=== PATIENT | male | born 1945 | race Two or more races ===

== ENCOUNTER 2016-11-12 16:50 | Inpatient (IN) | payer MEDICARE, BC ==
[~2016-11-12] VITALS: Ht 180.3 cm; Wt 77.1 kg
[2016-11-12] MEDS ORDERED: FINA5TAB11 PO (17:24)
[2016-11-12] MEDS ORDERED: ATOR20TA PO (17:24)
[2016-11-12] MEDS ORDERED: INSU100C SQ (17:24)
[2016-11-12] MEDS ORDERED: METO-306 PO (17:24)
[2016-11-12] MEDS ORDERED: TAMS0.4C34 PO (17:24)
[2016-11-12] MEDS ORDERED: MAG-55 PO (17:24)
[2016-11-12] MEDS ORDERED: BISA10SU8 RC (17:24)
[2016-11-12] MEDS ORDERED: DOCU-170 PO (17:24)
[2016-11-12] MEDS ORDERED: ACET325T53 PO (17:24)
[2016-11-12] MEDS ORDERED: TRAZ-147 PO (17:24)
[2016-11-12] MEDS ORDERED: SENN8.6T6 PO (17:24)
[2016-11-12] MEDS ORDERED: ZYPREXA IM (17:24)
[2016-11-12] MEDS ORDERED: SERT50TA12 PO (17:24)
[2016-11-12] MEDS ORDERED: DONE10TA44 PO (17:24)
[2016-11-12] MEDS ORDERED: POLY250017 PO (17:24)
[2016-11-12] MEDS ORDERED: MIRT15TA7 PO (17:24)
[2016-11-12] MEDS ORDERED: QUET150T PO (17:24)
[2016-11-12] MEDS ORDERED: ENOX40DI9 SQ (17:24)
[2016-11-12] MEDS ORDERED: INSU100V7 SQ (17:24)
[2016-11-12] MEDS ORDERED: OXCA300T PO (17:24)
[2016-11-12 17:27] LABS: CARBON DIOXIDE 27 mmol/L (21-32); CHLORIDE 107 mmol/L (98-107); CREATININE 1.3 mg/dL (0.6-1.3); GLUCOSE 107 mg/dL (74-106); POTASSIUM 3.8 mmol/L (3.5-5.1); UREA NITROGEN, BLOOD 22 mg/dL (7-18)
[2016-11-12 17:32] LABS: ALANINE AMINOTRANSFERASE 23 U/L (16-63); ALKALINE PHOSPHATASE 66 U/L (50-136); ASPARTATE AMINOTRANSFERASE 37 U/L (15-37); BILIRUBIN,DIRECT 0.1 mg/dL (0.0-0.2); BILIRUBIN,TOTAL 0.5 mg/dL (0.2-1.0); TOTAL PROTEIN, SERUM 7.4 g/dL (6.4-8.2)
[2016-11-12 17:39] LABS: BASOPHILS % (AUTO) 0.4 % (0.0-2.0); EOSINOPHILS # (AUTO) 0.2 K/uL (0.0-0.7); EOSINOPHILS % (AUTO) 2.3 % (0.0-7.0); HEMATOCRIT 45.5 % (40-50); HEMOGLOBIN 15.4 G/DL (14.0-18.0); LYMPHOCYTES # (AUTO) 2.3 K/UL (0.8-4.8); LYMPHOCYTES % (AUTO) 29.7 % (20.5-51.5); MEAN CORPUSCULAR HGB CONC 34 g/dL (32.0-37.0); MEAN CORPUSCULAR VOLUME 88.9 FL (82.0-92.0); MONOCYTES % (AUTO) 13.1 % (0.0-11.0); NEUTROPHILS # (AUTO) 4.3 K/UL (1.8-8.9); NEUTROPHILS % (AUTO) 54.5 % (38.5-71.5); PLATELET COUNT (AUTO) 203 K/UL (150-450); RED BLOOD CELL COUNT(AUTO) 5.12 MIL/UL (4.7-6.1); WHITE BLOOD COUNT (AUTO) 7.8 K/UL (4.0-11.2)
[2016-11-12 17:40] LABS: ETHANOL < 3 MG/DL (0-0)
[2016-11-12 17:41] LABS: ACETAMINOPHEN < 2.0 ug/mL (10-30)
[2016-11-12 18:09] LABS: *BLOOD, URINE NEGATIVE (NEGATIVE); *CLARITY,URINE SLIGHTLY CLOUDY (CLEAR); *COLOR,URINE YELLOW (YELLOW); *KETONES,URINE 2+ (NEGATIVE); *UROBILINOGEN,URINE 0.2 E.U./dl (NORMAL); LEUKOCYTE ESTERASE ,URINE NEGATIVE (NEGATIVE); NITRITE, URINE NEGATIVE (NEGATIVE); UGLUCOSE NEGATIVE (NEGATIVE)
[2016-11-12 18:10] LABS: *PROTEIN,URINE 3+ (NEGATIVE)
[2016-11-12 18:11] LABS: *BILIRUBIN,URIN 1+ (NEGATIVE)
[2016-11-12 18:15] LABS: *AMPHETAMINE, URINE NEGATIVE (NEGATIVE); *BARBITURATE, URINE NEGATIVE (NEGATIVE); *CANNABINOID, URINE POSITIVE (NEGATIVE); *COCCAINE, URINE NEGATIVE (NEGATIVE); *OPIATE, URINE NEGATIVE (NEGATIVE); *PHENCYCLIDINE SCREEN,URINE NEGATIVE (NEGATIVE)
[2016-11-12 18:20] LABS: BACTERIA,URINE NONE SEEN /HPF (NONE SEEN); RBC,URINE 0-3 /HPF (0-3); SQUAMOUS EPITHELIAL CELL,UR NONE SEEN /HPF (NONE SEEN); WBC,URINE 0-3 /HPF (0-3)
--- NOTE | 2016-11-12 18:32 | NUR ---
PT MEDICALLY CLEARED, WIIL TRANSFER TO 2ND FLOOR MHU OVERFLOW IN PM SHIFT PER [facility] BANK CREDIT CARD COLLECTION CLERK.
--- NOTE | 2016-11-12 19:21 | NUR ---
Received report, assumed care of pt at this time. Sitter at bedside. Admission pending.
--- NOTE | 2016-11-12 19:37 | NUR ---
Report given to DREW Thompson. Preparing to transfer pt to the floor.
--- NOTE | 2016-11-12 20:00 | NUR ---
Received patient from ER [facility] overflow via [facility]. Patient is alert, confused, responds with disorganized thoughts. Admission procedures, plan of care initiated, belonging list done and accounted for. Sitter at bedside. Will continue plan of care and monitor.
[2016-11-12] MEDS ORDERED: ACETAMINOPHEN 325 MG TABLET PO PRN (20:15)
[2016-11-12] MEDS ORDERED: MAG HYDROX/AL HYDROX/SIMETH 30 ML LIQUID UDC PO PRN (20:15)
[2016-11-12] MEDS ORDERED: MAGNESIUM HYDROXIDE 30 ML LIQUID UDC PO PRN (20:15)
[2016-11-12] MEDS ORDERED: LORAZEPAM 1 MG TABLET PO PRN ×2 (20:15→20:30)
[2016-11-12] MEDS: LORAZEPAM 0.5 MG TABLET PO PRN (22:03)
[2016-11-12] MEDS: TEMAZEPAM 7.5 MG CAPSULE PO PRN (22:04)
--- NOTE | 2016-11-13 01:00 | NUR ---
Patient is agitated, called Dr. Kovacs for orders. Orders noted and carried out. Will reassess patient.
[2016-11-13] MEDS ORDERED: OLANZAPINE 10 MG VIAL IM ONE (01:15)
--- NOTE | 2016-11-13 02:30 | NUR ---
Patient is calm but awake. Sitter at bedside.
--- NOTE | 2016-11-13 06:00 | NUR ---
Patient did not sleep most of the night. Frequently tries to get out of bed. Sitter at bedside. Will continue to monitor.
--- NOTE | 2016-11-13 07:30 | NUR ---
Spoke with patient's son Faustino to inform about patient's 5150 hold. Per son, the reason for his dad's agitation is due to the psych meds he is on. Patient's son is upset that the reason his dad went to [facility] is for abdominal pain and chest pain but his dad ended up for "something else". Endorsed information to day shift RN.
[2016-11-13 08:00] VITALS: BP 136/79
[2016-11-13] MEDS: LORAZEPAM 0.5 MG TABLET PO PRN (08:55)
[2016-11-13 12:00] VITALS: BP 132/87
[2016-11-13] MEDS ORDERED: SERT50TA PO (13:20)
[2016-11-13] MEDS ORDERED: OXCA150T5 PO ×2 (13:20)
[2016-11-13] MEDS ORDERED: TRAZ-147 PO (13:20)
[2016-11-13] MEDS ORDERED: METH25VI11 IJ (13:20)
[2016-11-13] MEDS ORDERED: LORA0.5T PO (13:20)
[2016-11-13] MEDS ORDERED: DONE10TA44 PO (13:20)
[2016-11-13] MEDS ORDERED: INFL100V IV (13:20)
[2016-11-13] MEDS: MUPIROCIN 2% OINT 22 GM TUBE NS SCH ×2 (14:24→20:37)
[2016-11-13 16:00] VITALS: BP 140/83
[2016-11-13] MEDS ORDERED: BISACODYL 10 MG SUPP.RECT RC PRN (16:30)
[2016-11-13] MEDS ORDERED: SENNOSIDES 1 TABLET PO PRN (16:30)
[2016-11-13] MEDS ORDERED: DOCUSATE SODIUM 100 MG CAPSULE PO PRN (16:30)
[2016-11-13] MEDS ORDERED: POLYETHYLENE GLYCOL 17 GM PO PRN (16:30)
[2016-11-13] MEDS ORDERED: DEXTROSE 50% 50 ML DISP.SYRIN IV PRN (16:30)
[2016-11-13] MEDS: BLOOD SUGAR DIAGNOSTIC 1 EACH STRIP VI SCH ×2 (16:56→20:49)
[2016-11-13] MEDS ORDERED: INSULIN GLARGINE,HUM 300 UNITS/3 ML CARTRIDGE SQ SCH (17:00)
[2016-11-13] MEDS ORDERED: INSU3INS6 SUBCUT (17:12)
--- NOTE | 2016-11-13 18:11 | NUR ---
"OK TO INCREASE ATIVAN TO 1MG Q6H" PER DR. DAVILA
[2016-11-13] MEDS: QUETIAPINE FUMARATE 25 MG TABLET PO SCH (18:26)
[2016-11-13] MEDS: DIVALPROEX SPRINKLE 125 MG CAP.SPRINK PO SCH ×2 (18:26→20:38)
[2016-11-13] MEDS: INSULIN REGULAR, HUMAN 300 UNIT/3 ML VIAL SQ PRN (18:28)
[2016-11-13] MEDS: QUETIAPINE FUMARATE 100 MG TABLET PO SCH (20:38)
[2016-11-13] MEDS: ATORVASTATIN 20 MG TABLET PO SCH (20:38)
[2016-11-13] MEDS: TAMSULOSIN HCL 0.4 MG CAP.SR.24H PO SCH (20:38)
[2016-11-13] MEDS: SERTRALINE HCL 50 MG TABLET PO SCH (20:39)
[2016-11-13] MEDS: INSULIN DETEMIR 300 UNIT/3 ML CARTRIDGE SQ SCH (20:49)
[2016-11-13] MEDS ORDERED: LORAZEPAM 0.5 MG TABLET PO PRN (22:30)
--- NOTE | 2016-11-14 05:41 | NUR ---
Patient slept intermittently, restless, confused, responds to questions inappropriately/incongruent, in no acute distress. Accuchecks as ordered, no hypo/hyperglycemia episodes throughout the shift. 1:1 sitter at bedside for safety. Will continue plan of care and monitor.
[2016-11-14] MEDS: BLOOD SUGAR DIAGNOSTIC 1 EACH STRIP VI SCH ×4 (06:51→20:56)
[2016-11-14 06:52] VITALS: BP 145/69
[2016-11-14 08:00] VITALS: BP 131/81
[2016-11-14] MEDS: INSULIN REGULAR, HUMAN 300 UNIT/3 ML VIAL SQ PRN ×3 (08:05→17:53)
[2016-11-14] MEDS: FINASTERIDE 5 MG TABLET PO SCH (08:05)
[2016-11-14] MEDS: MUPIROCIN 2% OINT 22 GM TUBE NS SCH ×2 (08:05→20:13)
[2016-11-14] MEDS: DIVALPROEX SPRINKLE 125 MG CAP.SPRINK PO SCH ×3 (08:06→20:14)
[2016-11-14] MEDS: QUETIAPINE FUMARATE 25 MG TABLET PO SCH ×2 (08:06→17:44)
[2016-11-14] MEDS: METOPROLOL SUCCINATE XL 50 MG TAB.SR.24H PO SCH (08:06)
[2016-11-14] MEDS: ENOXAPARIN SODIUM 40 MG/0.4 ML DISP.SYRIN SQ SCH (08:09)
[2016-11-14] MEDS ORDERED: METOPROLOL SUCCINATE XL 100 MG TAB.SR.24H PO SCH (09:00)
[2016-11-14] MEDS: INSULIN DETEMIR 300 UNIT/3 ML CARTRIDGE SQ SCH ×2 (09:05→20:57)
[2016-11-14 12:03] VITALS: BP 117/62
[2016-11-14] MEDS: LORAZEPAM 1 MG TABLET PO PRN (15:18)
[2016-11-14 16:00] VITALS: BP 101/54
--- NOTE | 2016-11-14 19:30 | NUR ---
NO CHANGES NOTED. ALL SAFETY NEEDS ARE MET.
[2016-11-14] MEDS: TAMSULOSIN HCL 0.4 MG CAP.SR.24H PO SCH (20:14)
[2016-11-14] MEDS: QUETIAPINE FUMARATE 100 MG TABLET PO SCH (20:14)
[2016-11-14] MEDS: SERTRALINE HCL 50 MG TABLET PO SCH (20:14)
[2016-11-14] MEDS: ATORVASTATIN 20 MG TABLET PO SCH (20:14)
[2016-11-14 20:17] VITALS: BP 111/55
[2016-11-14] MEDS: TEMAZEPAM 7.5 MG CAPSULE PO PRN (22:47)
[2016-11-15] MEDS: LORAZEPAM 1 MG TABLET PO PRN ×3 (01:02→21:49)
[2016-11-15] MEDS ORDERED: HALOPERIDOL LACTATE 5 MG/1 ML VIAL IM ONE (06:30)
[2016-11-15 06:35] VITALS: BP 145/78
[2016-11-15] MEDS: BLOOD SUGAR DIAGNOSTIC 1 EACH STRIP VI SCH ×4 (06:48→20:24)
--- NOTE | 2016-11-15 06:52 | NUR ---
PT IN GERICHAIR AT THIS TIME. PT ONLY SLEPT 30 MINS ACCORDING TO SITTER. MOSTLY RESTLESS AND COMBATIVE, WAS GIVEN RESTORIL AND ATIVAN LAST NIGHT. QUIET AT TIMES. THIS AM PT WAS VERY COMBATIVE WHEN [place] HELPER TRIED TO CHANGE HIS DIAPER, SCREAMING AND FIGHTING STAFF. DR. ORTEGA HERE ORDERED HALDOL 5MG IM. CONTINUED TO MONITOR. SAFETY OBSERVED.
[2016-11-15] MEDS: FINASTERIDE 5 MG TABLET PO SCH (08:01)
[2016-11-15] MEDS: DIVALPROEX SPRINKLE 125 MG CAP.SPRINK PO SCH ×3 (08:01→20:27)
[2016-11-15] MEDS: QUETIAPINE FUMARATE 25 MG TABLET PO SCH ×2 (08:01→17:20)
[2016-11-15] MEDS: MUPIROCIN 2% OINT 22 GM TUBE NS SCH ×2 (08:03→20:48)
[2016-11-15] MEDS: ENOXAPARIN SODIUM 40 MG/0.4 ML DISP.SYRIN SQ SCH (08:04)
[2016-11-15] MEDS: INSULIN DETEMIR 300 UNIT/3 ML CARTRIDGE SQ SCH ×2 (08:05→20:34)
[2016-11-15] MEDS: METOPROLOL SUCCINATE XL 50 MG TAB.SR.24H PO SCH (08:13)
--- NOTE | 2016-11-15 11:03 | NUR ---
Initial discharge instructions: Pt resides at home with his ,Teri [[address], [place],[address];[phone]].Per ,she would like the pt to return home upon discharge.Pt is confused and unable to plan for self care.SW will speak with and MD regarding appropriate discharge plans.SW will form a safe and proper discharge.
[2016-11-15 12:28] VITALS: BP 136/68
--- NOTE | 2016-11-15 12:57 | NUR ---
PT IS AGITATED AND CONFUSED. 1:1 SITTER FOR SAFETY NEEDS. NO S/S OF RESPIRATORY DISTRESS NOTED. NO PAIN NOTED. ALL SAFETY NEEDS ARE MET. WILL CONTINUE TO MONITOR. Addendum: 11/15/16 at 1414 by NEGRITO MORROW RN OCCURRENCE IS AT 0700
[2016-11-15 16:00] VITALS: BP 124/62
--- NOTE | 2016-11-15 16:20 | NUR ---
pt's blood sugar is at 50, provided the pt with orange juice. Next reading in 15 min showed 76 blood sugar. pt is calm and cooperative. Report is given to the MHU nurse. belongings are checked to be transferred to MHU unit. No s/s of respiratory distress noted. No pain noted. All safety needs are met. Pt transferred to MHU unit via wheelchair. Dr. Kovacs assessed the pt. Family came to visit the pt as well.
[2016-11-15 20:00] VITALS: BP 131/61
[2016-11-15] MEDS ORDERED: BISACODYL 10 MG SUPP.RECT RC PRN (20:00)
[2016-11-15] MEDS ORDERED: DOCUSATE SODIUM 100 MG CAPSULE PO PRN (20:00)
[2016-11-15] MEDS ORDERED: DEXTROSE 50% 50 ML DISP.SYRIN IV PRN (20:00)
[2016-11-15] MEDS ORDERED: MAG HYDROX/AL HYDROX/SIMETH 30 ML LIQUID UDC PO PRN (20:15)
[2016-11-15] MEDS ORDERED: MAGNESIUM HYDROXIDE 30 ML LIQUID UDC PO PRN (20:15)
[2016-11-15] MEDS: ATORVASTATIN 20 MG TABLET PO SCH (20:27)
[2016-11-15] MEDS: TAMSULOSIN HCL 0.4 MG CAP.SR.24H PO SCH (20:27)
[2016-11-15] MEDS: SERTRALINE HCL 50 MG TABLET PO SCH (20:27)
[2016-11-15] MEDS: QUETIAPINE FUMARATE 100 MG TABLET PO SCH (20:27)
[2016-11-15] MEDS: INSULIN REGULAR, HUMAN 300 UNIT/3 ML VIAL SQ PRN (20:35)
[2016-11-15] MEDS ORDERED: INSULIN DETEMIR 300 UNIT/3 ML CARTRIDGE SQ SCH (21:00)
[2016-11-15] MEDS ORDERED: DIVALPROEX SPRINKLE 125 MG CAP.SPRINK PO SCH (21:00)
--- NOTE | 2016-11-15 21:51 | NUR ---
GPS: PATIENT IS VERY AGITATED. BANGING ON THE TABLE. YELLING LOUD. ATIVAN 1 MG PO GIVEN FOR AGITATION.
[2016-11-15] MEDS: TEMAZEPAM 7.5 MG CAPSULE PO PRN (22:50)
--- NOTE | 2016-11-15 22:50 | NUR ---
GPS: PATIENT IS UNABLE TO SLEEP. RESTORIL 7.5 MG PO GIVEN FOR SLEEP.
--- NOTE | 2016-11-15 22:52 | NUR ---
GPS: PATIENT IS CALM NOW. PRN FOR AGITATION EFFECTIVE.
[2016-11-16] MEDS: BLOOD SUGAR DIAGNOSTIC 1 EACH STRIP VI SCH ×4 (06:18→21:09)
--- NOTE | 2016-11-16 06:28 | NUR ---
GPS: REMAIN COOPERATIVE WITH MEDS.UNCOOPERATIVE WITH CARE. OCC EPISODE OF YELLING. AGITATION X1 BANGING ON TABLE.TRYING TO GET OUT OF BED. ATIVAN 1 MG PO GIVEN EFFECTIVE. CONTINUE MONITORING FOR SAFETY VIA 1:1 SITTER @ BEDSIDE. CONTACT ISOLATION. CONTINUE PLAN OF CARE.
[2016-11-16 07:30] VITALS: BP 138/88
[2016-11-16] MEDS: INSULIN DETEMIR 300 UNIT/3 ML CARTRIDGE SQ SCH ×2 (08:19→21:11)
[2016-11-16] MEDS: QUETIAPINE FUMARATE 25 MG TABLET PO SCH ×2 (08:20→16:58)
[2016-11-16] MEDS: METOPROLOL SUCCINATE XL 50 MG TAB.SR.24H PO SCH (08:21)
[2016-11-16] MEDS: DIVALPROEX SPRINKLE 125 MG CAP.SPRINK PO SCH ×3 (08:21→20:59)
[2016-11-16] MEDS: FINASTERIDE 5 MG TABLET PO SCH (08:21)
[2016-11-16] MEDS: MUPIROCIN 2% OINT 22 GM TUBE NS SCH ×2 (08:32→20:59)
[2016-11-16] MEDS: ENOXAPARIN SODIUM 40 MG/0.4 ML DISP.SYRIN SQ SCH (08:47)
[2016-11-16] MEDS ORDERED: QUETIAPINE FUMARATE 25 MG TABLET PO SCH ×2 (09:00)
[2016-11-16] MEDS: LORAZEPAM 1 MG TABLET PO PRN (09:56)
[2016-11-16] MEDS: INSULIN REGULAR, HUMAN 300 UNIT/3 ML VIAL SQ PRN (12:05)
[2016-11-16 16:00] VITALS: BP 123/56
[2016-11-16] MEDS ORDERED: METH2.5T PO (16:30)
[2016-11-16 20:00] VITALS: BP 134/64
[2016-11-16] MEDS: ATORVASTATIN 20 MG TABLET PO SCH (20:59)
[2016-11-16] MEDS: SERTRALINE HCL 50 MG TABLET PO SCH (21:00)
[2016-11-16] MEDS: QUETIAPINE FUMARATE 100 MG TABLET PO SCH (21:00)
[2016-11-16] MEDS: TAMSULOSIN HCL 0.4 MG CAP.SR.24H PO SCH (21:00)
[2016-11-17] MEDS: BLOOD SUGAR DIAGNOSTIC 1 EACH STRIP VI SCH ×4 (06:41→20:48)
[2016-11-17 07:30] VITALS: BP 170/76
[2016-11-17] MEDS: LORAZEPAM 1 MG TABLET PO PRN (07:37)
[2016-11-17] MEDS: FINASTERIDE 5 MG TABLET PO SCH (08:00)
[2016-11-17] MEDS: MUPIROCIN 2% OINT 22 GM TUBE NS SCH ×2 (08:00→20:29)
[2016-11-17] MEDS: ENOXAPARIN SODIUM 40 MG/0.4 ML DISP.SYRIN SQ SCH (08:00)
[2016-11-17] MEDS: QUETIAPINE FUMARATE 25 MG TABLET PO SCH ×2 (08:01→16:25)
[2016-11-17] MEDS: DIVALPROEX SPRINKLE 125 MG CAP.SPRINK PO SCH ×3 (08:01→20:29)
[2016-11-17] MEDS: ACETAMINOPHEN 325 MG TABLET PO PRN (08:01)
[2016-11-17] MEDS: METOPROLOL SUCCINATE XL 50 MG TAB.SR.24H PO SCH (08:02)
[2016-11-17] MEDS: INSULIN DETEMIR 300 UNIT/3 ML CARTRIDGE SQ SCH ×2 (08:07→20:55)
[2016-11-17] MEDS: METHOTREXATE SODIUM 2.5 MG TABLET PO SCH (10:48)
[2016-11-17] MEDS: INSULIN REGULAR, HUMAN 300 UNIT/3 ML VIAL SQ PRN ×3 (11:37→20:54)
[2016-11-17 16:26] VITALS: BP 148/77
[2016-11-17 20:18] VITALS: BP 157/81
[2016-11-17] MEDS: TAMSULOSIN HCL 0.4 MG CAP.SR.24H PO SCH (20:29)
[2016-11-17] MEDS: ATORVASTATIN 20 MG TABLET PO SCH (20:29)
[2016-11-17] MEDS: SERTRALINE HCL 50 MG TABLET PO SCH (20:30)
[2016-11-17] MEDS: QUETIAPINE FUMARATE 100 MG TABLET PO SCH (20:30)
--- NOTE | 2016-11-17 21:31 | NUR ---
pt is confused, anxious and restless, sitter at bedside, very poor insight and impaired judgement, still on contact isolation for MRSA nares, meds crushed and given with rose mary pudding, will continue to monitor.
[2016-11-18] MEDS: BLOOD SUGAR DIAGNOSTIC 1 EACH STRIP VI SCH ×4 (07:03→21:28)
--- NOTE | 2016-11-18 08:00 | NUR ---
Pt on 1:1 for safety. Pt is withdrawn and would not wont to talk Pt dis in no acute distress. Rechecked bs to 123 ofter OJ given by hs nurse. Pt has poor appetite this am. Pt is on isolation for +MRSA nares implemented.
[2016-11-18 08:02] VITALS: BP 131/50
[2016-11-18] MEDS: FINASTERIDE 5 MG TABLET PO SCH (08:38)
[2016-11-18] MEDS: METOPROLOL SUCCINATE XL 50 MG TAB.SR.24H PO SCH (08:39)
[2016-11-18] MEDS: DIVALPROEX SPRINKLE 125 MG CAP.SPRINK PO SCH ×3 (08:40→21:29)
[2016-11-18] MEDS: MUPIROCIN 2% OINT 22 GM TUBE NS SCH ×2 (08:40→21:36)
[2016-11-18] MEDS: ENOXAPARIN SODIUM 40 MG/0.4 ML DISP.SYRIN SQ SCH (08:41)
[2016-11-18] MEDS: QUETIAPINE FUMARATE 25 MG TABLET PO SCH ×2 (08:47→17:58)
[2016-11-18] MEDS: INSULIN DETEMIR 300 UNIT/3 ML CARTRIDGE SQ SCH ×3 (08:48→21:00)
--- NOTE | 2016-11-18 09:00 | NUR ---
Levamir held secondary to pt has poor appetite.
[2016-11-18 15:06] VITALS: BP 135/54
--- NOTE | 2016-11-18 18:30 | NUR ---
Pt is no acute distress. Call light is within reach.
[2016-11-18 20:14] VITALS: BP 104/58
--- NOTE | 2016-11-18 20:18 | NUR ---
Patient received sleeping in bed, breathing unlabored. Pt remains confused and restless while awake. Remains on isolation of the nares for MRSA. 1:1 sitter at all times. Safety measures maintained.
[2016-11-18] MEDS: ATORVASTATIN 20 MG TABLET PO SCH (21:29)
[2016-11-18] MEDS: INSULIN REGULAR, HUMAN 300 UNIT/3 ML VIAL SQ PRN (21:29)
[2016-11-18] MEDS: TAMSULOSIN HCL 0.4 MG CAP.SR.24H PO SCH (21:29)
[2016-11-18] MEDS: QUETIAPINE FUMARATE 100 MG TABLET PO SCH (21:29)
[2016-11-18] MEDS: SERTRALINE HCL 50 MG TABLET PO SCH (21:29)
--- NOTE | 2016-11-18 22:30 | NUR ---
PATIENT FINGERSTICK AT BEDTIME 143MG/DL, REFUSED SLIDING SCALE COVERAGE AND LANTUS AT BEDTIME. NO S/S HYPO/HYPERGLYCEMIA NOTED. WILL CONTINUE TO MONITOR FOR SAFETY.
[2016-11-19] MEDS: LORAZEPAM 1 MG TABLET PO PRN ×2 (03:55→11:53)
--- NOTE | 2016-11-19 04:00 | NUR ---
PT OBSERVED WITH AGGRESSIVE BEHAVIOR, YELLING AND SCREAMING. PT IS CONFUSED AND DISORGANIZED, UNCOOPERATIVE WITH REDIRECTION. PT GIVEN ATIVAN PRN ORDERED. 1:1 SITTER WITH PATIENT.
--- NOTE | 2016-11-19 05:00 | NUR ---
PATIENT IN APRIL CHAIR, CONTINUES TO HAVE OUTBURST OF YELLING AND SCREAMING. DISPLAYS AGGRESSIVE BEHAVIOR. COMFORT MEASURES PROVIDED BUT PT REMAINS UNCOOPERATIVE.
[2016-11-19] MEDS ORDERED: OLANZAPINE 10 MG VIAL IM ONE ×2 (06:00→06:05)
[2016-11-19] MEDS ORDERED: LORAZEPAM 2 MG/1 ML VIAL IM ONE (06:00)
[2016-11-19] MEDS ORDERED: LORAZEPAM 2 MG/1 ML VIAL ONE (06:06)
--- NOTE | 2016-11-19 06:08 | NUR ---
PATIENT IS STILL AGGRESSIVE AND ATTEMPTS TO STRIKE OUT AT STAFF UPON APPROACH DESPITE REDIRECTION. PT YELLING AT TIMES. MD NOTIFIED, PT GIVEN ZYPREXA 5MG IM AND ATIVAN 1MG IM ONCE ORDERED. 1;1 SITTER AT ALL TIMES.
[2016-11-19] MEDS: BLOOD SUGAR DIAGNOSTIC 1 EACH STRIP VI SCH ×4 (06:42→20:43)
--- NOTE | 2016-11-19 06:43 | NUR ---
PATIENT IN APRIL CHAIR IN ROOM QUIET. NO YELLING OR AGGRESSIVE BEHAVIOR AT THIS TIME. 1:1 AT ALL TIMES. REMAINS ON ISOLATION OF THE NARES FOR MRSA.
[2016-11-19 07:30] VITALS: BP 121/68
[2016-11-19 07:47] LABS: BASOPHILS % (AUTO) 0.5 % (0.0-2.0); EOSINOPHILS # (AUTO) 0.2 K/uL (0.0-0.7); EOSINOPHILS % (AUTO) 2.2 % (0.0-7.0); HEMATOCRIT 42.3 % (40-50); HEMOGLOBIN 14.3 G/DL (14.0-18.0); LYMPHOCYTES # (AUTO) 1.6 K/UL (0.8-4.8); LYMPHOCYTES % (AUTO) 21.7 % (20.5-51.5); MEAN CORPUSCULAR HEMOGLOBIN 30.1 UUG (27.0-31.0); MEAN CORPUSCULAR HGB CONC 34 g/dL (32.0-37.0); MEAN CORPUSCULAR VOLUME 88.9 FL (82.0-92.0); MONOCYTES # (AUTO) 0.6 K/UL (0.1-1.30); MONOCYTES % (AUTO) 8.6 % (0.0-11.0); NEUTROPHILS # (AUTO) 5.1 K/UL (1.8-8.9); PLATELET COUNT (AUTO) 206 K/UL (150-450); RED BLOOD CELL COUNT(AUTO) 4.76 MIL/UL (4.7-6.1); WHITE BLOOD COUNT (AUTO) 7.5 K/UL (4.0-11.2)
[2016-11-19 08:14] LABS: CREATININE 1.2 mg/dL (0.6-1.3); MAGNESIUM 1.6 mg/dL (1.8-2.4); POTASSIUM 3.8 mmol/L (3.5-5.1)
[2016-11-19] MEDS: INSULIN DETEMIR 300 UNIT/3 ML CARTRIDGE SQ SCH ×2 (09:00→20:30)
--- NOTE | 2016-11-19 09:25 | NUR ---
0700-The report was received from the outgoing nurse. The patient was in his room having his labs drawn by 2 techs. The skilled nurse observed the procedure. The patient is on MRSA. 0850-AM medication was given to the patient by the skilled nurse crushed in [facility]. He took his medication however the nurse had to stop several times due to aggresion by the patient. He was given the lovenox with assistance from nursing staff. The patient was not oriented and appeared confused.
[2016-11-19] MEDS ORDERED: MAGNESIUM OXIDE 400 MG TABLET PO ONE (10:00)
[2016-11-19] MEDS: FINASTERIDE 5 MG TABLET PO SCH (11:36)
[2016-11-19] MEDS: QUETIAPINE FUMARATE 25 MG TABLET PO SCH ×2 (11:38→17:24)
[2016-11-19] MEDS: DIVALPROEX SPRINKLE 125 MG CAP.SPRINK PO SCH ×3 (13:03→20:40)
[2016-11-19] MEDS: METOPROLOL SUCCINATE XL 50 MG TAB.SR.24H PO SCH (13:05)
[2016-11-19] MEDS: ENOXAPARIN SODIUM 40 MG/0.4 ML DISP.SYRIN SQ SCH (13:07)
[2016-11-19] MEDS: INSULIN REGULAR, HUMAN 300 UNIT/3 ML VIAL SQ PRN ×2 (13:14→17:29)
[2016-11-19] MEDS: MUPIROCIN 2% OINT 22 GM TUBE NS SCH ×2 (13:19→20:39)
--- NOTE | 2016-11-19 14:27 | NUR ---
1100-Lunch was given to the patient. The sitter helped him eat. No incidents at this time. 1130-Accucheck was done and the blood glucose read 135mg/dl. 2 units of insulin were given as per coverage.
[2016-11-19 15:18] VITALS: BP 142/50
[2016-11-19] MEDS ORDERED: MAGNESIUM HYDROXIDE 30 ML LIQUID UDC PO ONE (15:30)
[2016-11-19] MEDS ORDERED: BISACODYL 10 MG SUPP.RECT RC ONE (15:30)
--- NOTE | 2016-11-19 16:00 | NUR ---
1545 Patient had a extra large bowel movement formed to soft in consistency. Dolucolax supp and MOM not given.
[2016-11-19] MEDS: DOCUSATE SODIUM 100 MG CAPSULE PO SCH ×2 (18:20→20:40)
[2016-11-19 20:30] VITALS: BP 132/60
--- NOTE | 2016-11-19 20:30 | NUR ---
PT IS AGITATED AND CONFUSED, PER KAZAKH SPEAKING SITTER, PT DOES NOT MAKE SENSE, INCONGRUENT SPEECHES AND CONVERSATION, VERY LABILE, REFUSED MEDS, UNPREDICTABLE.
[2016-11-19] MEDS: TAMSULOSIN HCL 0.4 MG CAP.SR.24H PO SCH (20:41)
[2016-11-19] MEDS: QUETIAPINE FUMARATE 100 MG TABLET PO SCH (20:42)
[2016-11-19] MEDS: ATORVASTATIN 20 MG TABLET PO SCH (20:42)
[2016-11-19] MEDS: SERTRALINE HCL 50 MG TABLET PO SCH (20:43)
[2016-11-19] MEDS: TEMAZEPAM 7.5 MG CAPSULE PO PRN (22:02)
[2016-11-19] MEDS: ACETAMINOPHEN 325 MG TABLET PO PRN (22:02)
--- NOTE | 2016-11-19 22:05 | NUR ---
PT ASSISTED TO THE RESTROOM AND PUT BACK IN BED, COMPLIANT WITH PRN MEDS, WILL CONTINUE TO MONITOR.
--- NOTE | 2016-11-20 01:46 | NUR ---
PT IN BED SLEEPING, NO DISTRESS NOTED, WILL CONTINUE TO MONITOR CLOSELY.
[2016-11-20] MEDS: BLOOD SUGAR DIAGNOSTIC 1 EACH STRIP VI SCH ×4 (07:00→20:15)
[2016-11-20 07:30] VITALS: BP 137/79
[2016-11-20] MEDS: INSULIN REGULAR, HUMAN 300 UNIT/3 ML VIAL SQ PRN ×2 (07:58→21:10)
[2016-11-20] MEDS: DOCUSATE SODIUM 100 MG CAPSULE PO SCH ×2 (08:10→21:00)
[2016-11-20] MEDS: DIVALPROEX SPRINKLE 125 MG CAP.SPRINK PO SCH ×3 (08:10→20:00)
[2016-11-20] MEDS: FINASTERIDE 5 MG TABLET PO SCH (08:11)
[2016-11-20] MEDS: QUETIAPINE FUMARATE 25 MG TABLET PO SCH ×2 (08:11→17:40)
[2016-11-20] MEDS: MUPIROCIN 2% OINT 22 GM TUBE NS SCH (08:12)
[2016-11-20] MEDS: METOPROLOL SUCCINATE XL 50 MG TAB.SR.24H PO SCH (08:16)
[2016-11-20] MEDS: INSULIN DETEMIR 300 UNIT/3 ML CARTRIDGE SQ SCH ×2 (08:17→21:08)
[2016-11-20] MEDS: LORAZEPAM 1 MG TABLET PO PRN (09:15)
--- NOTE | 2016-11-20 14:00 | NUR ---
PATIENT CONTINUE TO BE AGITATED AND REQUIRING MEDICATION TO CONTROL BEHAVIOR CONTINUE TO REQUIRE A SITTER FOR OBSERVATION FOR SAFETY ALL NEEDS ANTICIPATED MADE COMFORTABLE.
[2016-11-20 16:00] VITALS: BP 127/63
[2016-11-20] MEDS: QUETIAPINE FUMARATE 100 MG TABLET PO SCH (20:01)
[2016-11-20 20:02] VITALS: BP 130/61
[2016-11-20] MEDS: SERTRALINE HCL 50 MG TABLET PO SCH (20:02)
[2016-11-20] MEDS: TAMSULOSIN HCL 0.4 MG CAP.SR.24H PO SCH (20:02)
[2016-11-20] MEDS: ATORVASTATIN 20 MG TABLET PO SCH (20:02)
[2016-11-20] MEDS: TEMAZEPAM 7.5 MG CAPSULE PO PRN (22:45)
--- NOTE | 2016-11-20 23:29 | NUR ---
PATIENT RECEIVED IN APRIL CHAIR SECURED AWAKE, REMAINS WITH A 1:1 SITTER FOR SAFETY. PATIENT CONFUSED AND DISORIENTED. BANGING ON THE TABLE UNPREDICTABLE. PATIENT HAVING VISUAL HALLUCINATIONS. PROVIDE A SAFE ENVIRONMENT, CONTINUE TO REDIRECT NEEDED. PATIENT IS EASILY AGITATED, AND IRRITABLE. PATIENT COMPLAINT WITH MEDICATION.
[2016-11-21] MEDS: ACETAMINOPHEN 325 MG TABLET PO PRN (00:06)
[2016-11-21] MEDS: LORAZEPAM 1 MG TABLET PO PRN ×2 (00:06→08:58)
[2016-11-21] MEDS: BLOOD SUGAR DIAGNOSTIC 1 EACH STRIP VI SCH ×5 (06:42→20:46)
[2016-11-21 07:30] VITALS: BP 146/57
[2016-11-21] MEDS: FINASTERIDE 5 MG TABLET PO SCH (08:55)
[2016-11-21] MEDS: METOPROLOL SUCCINATE XL 50 MG TAB.SR.24H PO SCH (08:56)
[2016-11-21] MEDS: DOCUSATE SODIUM 100 MG CAPSULE PO SCH ×2 (08:56→20:41)
[2016-11-21] MEDS: QUETIAPINE FUMARATE 25 MG TABLET PO SCH ×2 (08:57→17:09)
[2016-11-21] MEDS: DIVALPROEX SPRINKLE 125 MG CAP.SPRINK PO SCH ×3 (08:58→20:41)
[2016-11-21] MEDS: INSULIN DETEMIR 300 UNIT/3 ML CARTRIDGE SQ SCH ×2 (08:59→20:52)
[2016-11-21] MEDS: INSULIN REGULAR, HUMAN 300 UNIT/3 ML VIAL SQ PRN (12:09)
[2016-11-21] MEDS ORDERED: DIVALPROEX SPRINKLE 125 MG CAP.SPRINK PO SCH (13:00)
[2016-11-21 16:00] VITALS: BP 138/65
--- NOTE | 2016-11-21 17:05 | NUR ---
SPOKE WITH DR. DAVILA, RECEIVED AN ORDER TO D/C DIVALPOREX SPRINKLE 250 MG TID AND RESTART ORDER FOR DIVALPOREX SPRINKLE 250 MG AMHS.
[2016-11-21 20:12] VITALS: BP 122/65
[2016-11-21] MEDS: SERTRALINE HCL 50 MG TABLET PO SCH (20:41)
[2016-11-21] MEDS: QUETIAPINE FUMARATE 100 MG TABLET PO SCH (20:42)
[2016-11-21] MEDS: ATORVASTATIN 20 MG TABLET PO SCH (20:42)
[2016-11-21] MEDS: TAMSULOSIN HCL 0.4 MG CAP.SR.24H PO SCH (20:42)
[2016-11-22] MEDS: TEMAZEPAM 7.5 MG CAPSULE PO PRN (00:08)
[2016-11-22] MEDS: LORAZEPAM 1 MG TABLET PO PRN (05:35)
[2016-11-22] MEDS: BLOOD SUGAR DIAGNOSTIC 1 EACH STRIP VI SCH ×4 (06:26→21:00)
[2016-11-22 07:30] VITALS: BP 175/66
[2016-11-22 07:33] LABS: BASOPHILS % (AUTO) 0.5 % (0.0-2.0); EOSINOPHILS # (AUTO) 0.2 K/uL (0.0-0.7); EOSINOPHILS % (AUTO) 2.4 % (0.0-7.0); HEMATOCRIT 42.9 % (40-50); HEMOGLOBIN 14.7 G/DL (14.0-18.0); LYMPHOCYTES # (AUTO) 2.8 K/UL (0.8-4.8); LYMPHOCYTES % (AUTO) 35.2 % (20.5-51.5); MEAN CORPUSCULAR HEMOGLOBIN 30.3 UUG (27.0-31.0); MEAN CORPUSCULAR HGB CONC 34 g/dL (32.0-37.0); MEAN CORPUSCULAR VOLUME 88.4 FL (82.0-92.0); MONOCYTES % (AUTO) 12.1 % (0.0-11.0); NEUTROPHILS # (AUTO) 3.9 K/UL (1.8-8.9); NEUTROPHILS % (AUTO) 49.8 % (38.5-71.5); PLATELET COUNT (AUTO) 175 K/UL (150-450); RED BLOOD CELL COUNT(AUTO) 4.85 MIL/UL (4.7-6.1); WHITE BLOOD COUNT (AUTO) 7.9 K/UL (4.0-11.2)
[2016-11-22 08:04] LABS: BILIRUBIN,TOTAL 0.3 mg/dL (0.2-1.0); MAGNESIUM 1.9 mg/dL (1.8-2.4); PHOSPHOROUS 4.5 mg/dL (2.5-4.9); POTASSIUM 4.8 mmol/L (3.5-5.1); TOTAL PROTEIN, SERUM 7.8 g/dL (6.4-8.2)
[2016-11-22] MEDS: DOCUSATE SODIUM 100 MG CAPSULE PO SCH ×2 (08:22→21:42)
[2016-11-22] MEDS: FINASTERIDE 5 MG TABLET PO SCH (08:22)
[2016-11-22] MEDS: QUETIAPINE FUMARATE 25 MG TABLET PO SCH ×2 (08:22→17:51)
[2016-11-22] MEDS: DIVALPROEX SPRINKLE 125 MG CAP.SPRINK PO SCH ×4 (08:22→21:41)
[2016-11-22] MEDS: METOPROLOL SUCCINATE XL 50 MG TAB.SR.24H PO SCH (08:23)
[2016-11-22] MEDS: INSULIN DETEMIR 300 UNIT/3 ML CARTRIDGE SQ SCH ×2 (08:28→21:43)
[2016-11-22] MEDS ORDERED: hydrALAZINE HCL 25 MG TABLET PO PRN (10:00)
[2016-11-22] MEDS ORDERED: DIVALPROEX SPRINKLE 125 MG CAP.SPRINK PO ONE (10:15)
[2016-11-22] MEDS ORDERED: OLANZAPINE 10 MG VIAL IM ONE ×2 (12:30→12:38)
[2016-11-22] MEDS ORDERED: LORAZEPAM 2 MG/1 ML VIAL IM ONE (12:30)
--- NOTE | 2016-11-22 12:30 | NUR ---
GPS.RN- PATIENT ANXIOUS RESTLESS, DIFFICULT TO REDIRECT, COMBATIVE AT THIS TIME UNABLE TO REDIRECT. DR DAVILA NOTIFIED. EMERGENCY DOSE IM ORDERS RECVD, ZYPREXA 5MG IM ONCE AND ATIVAN 1MG IM ONCE. CARRIED OUT
[2016-11-22] MEDS: INSULIN REGULAR, HUMAN 300 UNIT/3 ML VIAL SQ PRN (12:31)
[2016-11-22] MEDS ORDERED: LORAZEPAM 2 MG/1 ML VIAL ONE (12:39)
[2016-11-22 15:23] VITALS: BP 134/63
[2016-11-22 20:04] VITALS: BP 110/50
[2016-11-22] MEDS: SERTRALINE HCL 50 MG TABLET PO SCH (21:40)
[2016-11-22] MEDS: TAMSULOSIN HCL 0.4 MG CAP.SR.24H PO SCH (21:41)
[2016-11-22] MEDS: ATORVASTATIN 20 MG TABLET PO SCH (21:41)
[2016-11-22] MEDS: OLANZAPINE ZYDIS 5 MG TAB.RAPDIS PO SCH (21:41)
[2016-11-23] MEDS: TEMAZEPAM 7.5 MG CAPSULE PO PRN (01:02)
[2016-11-23] MEDS: LORAZEPAM 1 MG TABLET PO PRN ×3 (04:40→20:02)
[2016-11-23] MEDS: BLOOD SUGAR DIAGNOSTIC 1 EACH STRIP VI SCH ×4 (07:33→20:26)
[2016-11-23] MEDS: INSULIN DETEMIR 300 UNIT/3 ML CARTRIDGE SQ SCH ×2 (09:00→20:48)
[2016-11-23] MEDS: METOPROLOL SUCCINATE XL 50 MG TAB.SR.24H PO SCH (09:00)
[2016-11-23] MEDS: DOCUSATE SODIUM 100 MG CAPSULE PO SCH ×2 (09:39→20:03)
[2016-11-23] MEDS: OLANZAPINE ZYDIS 5 MG TAB.RAPDIS PO SCH ×3 (09:39→20:03)
[2016-11-23] MEDS: FINASTERIDE 5 MG TABLET PO SCH (09:39)
[2016-11-23] MEDS: DIVALPROEX SPRINKLE 125 MG CAP.SPRINK PO SCH ×3 (09:39→20:02)
[2016-11-23] MEDS ORDERED: OLANZAPINE 10 MG VIAL IM STA (11:33)
--- NOTE | 2016-11-23 11:33 | NUR ---
GPS: Nursing Notes: Severe Agitation: Patient is awake and shouting profanities, confused, disoriented, poor anger management, unable to follow directions, restless, punching the wall, combative behavior, trying to strike out at staff, setting limits, continue with 1:1 sitter for safety, but continue to be disruptive by shouting and screaming, loud and angry affect, unable to be redirected, Dr. Whittaker covering psychiatrist for the W/E order Zyprexa 5mg IM STAT, refusing V/S, R=20, continue with treatment plan.
--- NOTE | 2016-11-23 11:49 | NUR ---
GPS: Nursing Notes: Chemical Restraint: Per covering psychiatrist, Dr. Whittaker ordered Zyprexa 5mg IM STAT for severe agitated behavior, striking out to staff, punching the ocampo, restless, unable to be redirected, medication IM given at this time, continue with 1:1 sitter for safety, R=20, refusing V/S, continue with treatment plan.
--- NOTE | 2016-11-23 12:19 | NUR ---
GPS: Nursing Notes: Reassessment of Chemical Restraint: Continue to be disruptive by shouting and banging on the table, medications IM was helpful, but continue to be labile, confused, disoriented, continue with 1:1 sitter for safety, refusing V/S, R=20, continue with treatment plan.
[2016-11-23] MEDS: MAGNESIUM HYDROXIDE 30 ML LIQUID UDC PO ONE ×2 (13:40→13:52)
[2016-11-23 15:00] VITALS: BP 91/65
[2016-11-23] MEDS: ATORVASTATIN 20 MG TABLET PO SCH (20:02)
[2016-11-23] MEDS: SERTRALINE HCL 50 MG TABLET PO SCH (20:02)
[2016-11-23] MEDS: TAMSULOSIN HCL 0.4 MG CAP.SR.24H PO SCH (20:02)
[2016-11-23 20:12] VITALS: BP 130/60
--- NOTE | 2016-11-24 00:15 | NUR ---
GPS: Pt.still awake at this time,restless at times. Restoril 7.5mg offered for insomnia but refused to take despite explanation of risks vs.benefits. Re-directed and re-assured prn. Incontinence care rendered. Will continue to monitor.
[2016-11-24] MEDS: LORAZEPAM 1 MG TABLET PO PRN ×3 (02:49→15:25)
--- NOTE | 2016-11-24 02:50 | NUR ---
GPS: Pt.is anxious and restless at this time. Easily agitated when approached and when being re-directed. Ativan 1mg given PO and taken after some persuasion from staff. Needs attended. Fall precautions observed. Poor insight to present situation. 1:1 sitter for safety.
[2016-11-24] MEDS: BLOOD SUGAR DIAGNOSTIC 1 EACH STRIP VI SCH ×4 (06:31→20:39)
[2016-11-24 07:30] VITALS: BP 125/70
[2016-11-24] MEDS: ACETAMINOPHEN 325 MG TABLET PO PRN ×2 (07:46→15:25)
[2016-11-24] MEDS: FINASTERIDE 5 MG TABLET PO SCH (08:27)
[2016-11-24] MEDS: DIVALPROEX SPRINKLE 125 MG CAP.SPRINK PO SCH ×3 (08:28→20:25)
[2016-11-24] MEDS: DOCUSATE SODIUM 100 MG CAPSULE PO SCH ×2 (08:28→20:37)
[2016-11-24] MEDS: METOPROLOL SUCCINATE XL 50 MG TAB.SR.24H PO SCH (08:28)
[2016-11-24] MEDS: INSULIN DETEMIR 300 UNIT/3 ML CARTRIDGE SQ SCH ×2 (08:28→20:40)
[2016-11-24] MEDS: OLANZAPINE ZYDIS 5 MG TAB.RAPDIS PO SCH ×3 (08:28→20:39)
[2016-11-24] MEDS: METHOTREXATE SODIUM 2.5 MG TABLET PO SCH (10:30)
[2016-11-24 15:41] VITALS: BP 128/67
[2016-11-24] MEDS: INSULIN REGULAR, HUMAN 300 UNIT/3 ML VIAL SQ PRN ×2 (16:10→20:42)
[2016-11-24] MEDS ORDERED: TEMAZEPAM 15 MG CAPSULE PO PRN (20:15)
[2016-11-24] MEDS: SERTRALINE HCL 50 MG TABLET PO SCH (20:23)
[2016-11-24] MEDS: ATORVASTATIN 20 MG TABLET PO SCH (20:37)
[2016-11-24] MEDS: TAMSULOSIN HCL 0.4 MG CAP.SR.24H PO SCH (20:38)
[2016-11-24] MEDS ORDERED: TEMAZEPAM 15 MG CAPSULE ONE (21:58)
[2016-11-25] MEDS: BLOOD SUGAR DIAGNOSTIC 1 EACH STRIP VI SCH ×2 (06:40→11:56)
[2016-11-25 07:30] VITALS: BP 129/50
[2016-11-25] MEDS: DIVALPROEX SPRINKLE 125 MG CAP.SPRINK PO SCH (08:39)
[2016-11-25 08:40] VITALS: BP 129/50
[2016-11-25] MEDS: METOPROLOL SUCCINATE XL 50 MG TAB.SR.24H PO SCH (08:40)
[2016-11-25] MEDS: DOCUSATE SODIUM 100 MG CAPSULE PO SCH (08:41)
[2016-11-25] MEDS: FINASTERIDE 5 MG TABLET PO SCH (08:41)
[2016-11-25] MEDS: OLANZAPINE ZYDIS 5 MG TAB.RAPDIS PO SCH (08:41)
[2016-11-25] MEDS: INSULIN DETEMIR 300 UNIT/3 ML CARTRIDGE SQ SCH (08:56)
--- NOTE | 2016-11-25 10:09 | NUR ---
DC Note: Patient will be discharged to [facility] [[id number], [place], [address]; [phone]] via ambulance at 12:00 pm. Spoke with Katelynn at the facility who stated she would accept the patient today. Spoke with patient's , Teri [phone] who is aware and agreeable with discharge plans. Patient will follow-up with (Rug Clipper) and (Psychiatrist) at the facility.
--- NOTE | 2016-11-25 16:56 | NUR ---
1300 CALLED [facility], SNF SPOKE WITH BHUPINDER HENRIQUEZ RN , REPORT GIVEN REGARDING PATIENT MENTAL AND MEDICAL CONDITIONS, MEDICATIONS TO CONTINUE AT HOME, RN VERBALIZED UNDERSTANDING. 1500 PATIENT PICKED UP BY AMBULANCE AND TRANSPORTED TO [facility] STABLE CONDITION.PATIENT DENIES SI/HI. NO HALLUCINATIONS/ NO DELUSIONS NOTED.
== END 2016-11-25 15:30 | DRG 885 ==
LOC: ER 16:53 → GPSOV 19:44 → GPS 11-15 17:57 → UNDODISIN 11-15 19:26 → GPS 11-15 20:49
PROVIDERS: ADMIT Psychiatry & Neurology Psychiatry; ATTEND Contractor
DX: F23 Brief psychotic disorder (principal); F03.91 Unspecified dementia, unspecified severity, with behavioral disturbance; E78.5 Hyperlipidemia, unspecified; R13.10 Dysphagia, unspecified; N40.0 Benign prostatic hyperplasia without lower urinary tract symptoms; Z79.4 Long term (current) use of insulin; Z22.322 Carrier or suspected carrier of Methicillin resistant Staphylococcus aureus; I25.10 Atherosclerotic heart disease of native coronary artery without angina pectoris; Z95.1 Presence of aortocoronary bypass graft; M06.9 Rheumatoid arthritis, unspecified; K59.00 Constipation, unspecified; E11.9 Type 2 diabetes mellitus without complications; I11.9 Hypertensive heart disease without heart failure; I51.7 Cardiomegaly; E83.42 Hypomagnesemia; F32.9 Major depressive disorder, single episode, unspecified
CPT/HCPCS: 36415; 71010; 80307; 83735; 84100; 85025; 93005; 97110; 97116; 97161; 97530; A4663; G0480; G0480-TC; J1630; J1650; J1815; J2060; J2358; J8610